=== PATIENT | male | born 1995 | race Caucasian/White ===

== ENCOUNTER 2017-07-27 09:30 | Emergency (ER) | payer MEDICAID, OTHER ==
[~2017-07-27] VITALS: Ht 180.3 cm; Wt 82.0 kg
[2017-07-27] MEDS ORDERED: IBUPROFEN 600MG TABLET PO ONE (10:30)
[2017-07-27 11:26] VITALS: BP 123/67
== END 2017-07-27 11:29 | disposition home or self-care (01) ==
LOC: ER 10:15
DX: S62.001A Unspecified fracture of navicular [scaphoid] bone of right wrist, initial encounter for closed fracture (principal); W01.0XXA Fall on same level from slipping, tripping and stumbling without subsequent striking against object, initial encounter; Y93.66 Activity, soccer; Y92.838 Other recreation area as the place of occurrence of the external cause
CPT/HCPCS: 29125; 73130; 99284

== ENCOUNTER 2024-01-11 06:06 | Emergency (ER) | payer MEDICAID ==
[~2024-01-11] VITALS: Ht 177.8 cm; Wt 109.0 kg
[2024-01-11 06:20] VITALS: O2SAT 100
[2024-01-11 06:22] VITALS: BP 125/86; PULSE 67; RESP 14; TEMP 97.6; O2SAT 100
[2024-01-11] MEDS ORDERED: TOPUD PO (08:25)
[2024-01-11] MEDS ORDERED: IBUPROFEN 400MG TABLET PO ONE (08:30)
== END 2024-01-12 00:22 | disposition home or self-care (01) ==
LOC: ER 06:06
DX: S62.001A Unspecified fracture of navicular [scaphoid] bone of right wrist, initial encounter for closed fracture (principal); W18.39XA Other fall on same level, initial encounter; Y93.89 Activity, other specified; Y92.89 Other specified places as the place of occurrence of the external cause; Y99.8 Other external cause status
CPT/HCPCS: 29105; 73110; 99283; A4565